=== PATIENT | female | born 1985 | race Caucasian/White ===

== ENCOUNTER 2022-08-07 19:53 | Emergency (ER) | payer MEDICAID ==
[~2022-08-07] VITALS: Ht 160 cm; Wt 75.0 kg
[2022-08-07] MEDS ORDERED: METHYLPREDNISOLONE SOD SUCC 125 MG/2 ML VIAL IV ONE (20:15)
[2022-08-07 20:41] LABS: BASOPHILS % 0.3 % (0.0-2.0); EOSINOPHILS % 2.6 % (0.0-5.0); HEMATOCRIT. 45.7 % (36.0-48.0); HEMOGLOBIN. 15.7 g/dL (12.0-16.0); LYMPHOCYTES % 53.5 % (20.0-50.0); MEAN CORPUSCULAR HEMOGLOBIN 30.1 pg (28.0-32.0); MEAN CORPUSCULAR VOLUME 87.3 fL (81.0-99.0); MEAN PLATELET VOLUME 8.5 fl (7.4-10.4); MONOCYTES % 4.7 % (2.0-8.0); NEUTROPHILS % 38.9 % (40.0-76.0); PLATELET 402 x1000/uL (130-400); RED BLOOD CELL COUNT 5.23 mill/uL (4.2-5.4)
[2022-08-07 20:49] LABS: HCG SCREEN NEGATIVE
[2022-08-07 21:50] LABS: CHLORIDE 105 mEq/L (98-107)
[2022-08-07] MEDS ORDERED: EPIN0.3P3 IM (22:06)
[2022-08-07 23:58] VITALS: BP 100/69
== END 2022-08-08 01:34 | disposition home or self-care (01) ==
LOC: ER 19:53
DX: T88.6XXA Anaphylactic reaction due to adverse effect of correct drug or medicament properly administered, initial encounter (principal); T39.395A Adverse effect of other nonsteroidal anti-inflammatory drugs [NSAID], initial encounter; R06.03 Acute respiratory distress; D72.829 Elevated white blood cell count, unspecified; Y92.89 Other specified places as the place of occurrence of the external cause
CPT/HCPCS: 36415; 71045; 80053; 84703; 85025; 96374; 99284; J2930

== ENCOUNTER 2023-09-19 18:09 | Emergency (ER) | payer MEDICAID ==
[~2023-09-19] VITALS: Ht 165.1 cm; Wt 82.0 kg
[~2023-09-19 18:09] MED LIST: EPIN0.3P3 IM
[2023-09-19 18:10] VITALS: BP 122/80; PULSE 90; RESP 16; TEMP 98.5; O2SAT 100
[2023-09-19 20:16] LABS: BASOPHILS % 0.5 % (0.0-2.0); EOSINOPHILS % 1.9 % (0.0-5.0); HEMATOCRIT. 39.8 % (36.0-48.0); HEMOGLOBIN. 13.7 g/dL (12.0-16.0); LYMPHOCYTES % 20.5 % (20.0-50.0); MEAN CORPUSCULAR HEMOGLOBIN 30.2 pg (28.0-32.0); MEAN CORPUSCULAR HGB CONC 34.4 g/dL (31.0-37.0); MEAN CORPUSCULAR VOLUME 87.8 fL (81.0-99.0); MEAN PLATELET VOLUME 7.7 fl (7.4-10.4); MONOCYTES % 6.8 % (2.0-8.0); NEUTROPHILS % 70.3 % (40.0-76.0); PLATELET 313 x1000/uL (130-400); RED BLOOD CELL COUNT 4.53 mill/uL (4.2-5.4); RED CELL DISTRIBUTION WIDTH 13.7 % (11.6-14.6); WHITE BLOOD COUNT 10.4 x1000/uL (4.5-11.0)
[2023-09-19 20:32] LABS: ALANINE AMINOTRANSFERASE 40 IU/L (10-49); ALBUMIN 4.8 g/dL (3.2-4.8); ASPARTATE AMINOTRANSFERASE 33 IU/L (<34); BILIRUBIN TOTAL 0.4 mg/dL (0.1-1.0); CALCIUM 9.7 mg/dL (8.7-10.4); CARBON DIOXIDE 18 mEq/L (21-32); CHLORIDE 110 mEq/L (98-107); CREATININE 0.8 mg/dL (0.6-1.0); GLUCOSE 123 mg/dL (70-105); POTASSIUM 3.4 mEq/L (3.5-5.1); PROTEIN TOTAL 8.5 g/dL (6.0-8.3); SODIUM 138 mEq/L (136-145); TROPONIN I HIGH SENSITIVITY < 4 ng/L (3.0-34); UREA NITROGEN BLOOD 9 mg/dL (9-23)
[2023-09-19 20:43] LABS: HCG SCREEN NEGATIVE
[2023-09-19 23:12] LABS: CALCIUM 8.7 mg/dL (8.7-10.4); CARBON DIOXIDE 20 mEq/L (21-32); CHLORIDE 111 mEq/L (98-107); CREATININE 0.7 mg/dL (0.6-1.0); GLUCOSE 97 mg/dL (70-105); POTASSIUM 3.2 mEq/L (3.5-5.1); SODIUM 139 mEq/L (136-145); UREA NITROGEN BLOOD 9 mg/dL (9-23)
[2023-09-19] MEDS: POTASSIUM CHLORIDE 20MEQ/PACKET PO ONE (23:30)
[2023-09-20] MEDS: LORAZEPAM 0.5MG TABLET PO ONE
[2023-09-20] MEDS: POTASSIUM CHLORIDE 20MEQ/PACKET PO NR (03:20)
== END 2023-09-20 04:45 | disposition home or self-care (01) ==
LOC: ER 18:09 → EDBEDREQSVC 09-20 00:29 → EDBEDREQ 09-20 00:29 → EDBEDREQTM 09-20 00:29 → ER 09-20 04:45 → CANBEDREQ 09-20 22:53
DX: F41.0 Panic disorder [episodic paroxysmal anxiety] (principal); R06.02 Shortness of breath; R07.89 Other chest pain
CPT/HCPCS: 36415; 71045; 80048; 80053; 84484; 84703; 85025; 85379; 93005; 99285